=== PATIENT | male | born 1970 | race Caucasian/White ===

== ENCOUNTER 2024-04-26 15:29 | Emergency (ER) | payer OTHER ==
--- NOTE | 2024-04-26 15:48 | ED Physician Documentation ---
PD HPI CHEST PAIN - Stated complaint Stated Complaint: CP - Chief complaint Chief Complaint: Cardiac - History obtained from History obtained from: Patient - Additional information Additional information: 53-year-old gentleman with history of ongoing tobaccoism, type 2 diabetes and hypercholesterolemia presents with evaluation of chest pain. It started about 2 hours ago (1:40 PM) with light activity. He describes it as an intermittent pain just to the right of the sternum lasting only a second at a time. Somewhat random without obvious inciting factors but happening every 20 minutes or so. S o he is mostly pain-free. He denies shortness of breath, pedal edema, calf pain, recent travel, diaphoresis or nausea. PD PAST MEDICAL HISTORY - Past Medical History Endocrine/Autoimmune: Type 2 diabetes - Present Medications Home Medications: Ambulatory Orders Medication Instructions Recorded Confirmed Atorvastatin Calcium 40 mg PO DAILY 04/26/24 04/26/24 metFORMIN [Glucophage] 500 mg PO DAILY 04/26/24 04/26/24 - Allergies Allergies/Adverse Reactions: Allergies Allergy/AdvReac Type Severity Reaction Status Date / Time No Known Drug Allergies Allergy Verified 04/26/24 15:44 - Social History Does the pt smoke?: Yes Smoking Status: Current every day smoker Does the pt drink ETOH?: No Does the pt have substance abuse?: No - Immunizations Immunizations are current?: No - POLST Patient has POLST: No PD ED PE NORMAL - Vitals Vital signs reviewed: Yes - General General: Alert and oriented X 3, No acute distress - Neck Neck: Supple, no meningeal sign - Cardiac Cardiac: RRR, No murmur, Other (Chest pain is not reproducible with palpation of the anterior chest wall in fact if anything he says it alleviates it.) - Respiratory Respiratory: No respiratory distress, Clear bilaterally - Abdomen Abdomen: Normal bowel sounds, Soft, Non tender - Extremities Extremities: No edema, No calf tenderness / cord - Neuro Neuro: Alert and oriented X 3, Normal speech Results - Vitals Vitals: Vital Signs - 24 hr 04/26/24 15:38 Temperature 36.4 C L Heart Rate 101 H Respiratory 18 Rate Blood Pressure 154/94 H O2 Saturation 96 Oxygen O2 Source Room air - EKG (time done) 1538 EKG releavant findings:: EKG personally interpreted by author of this note. Relevant findings are: Rate: Rate (enter#) (98) Rhythm: NSR [place]: Normal Intervals: Normal [place] QRS: Normal Ischemia: Normal ST segments Computer interpretation: Agree with computer - Labs Labs: Laboratory Tests 04/26/24 04/26/24 15:40 15:40 WBC 8.2 RBC 5.25 Hgb 16.0 Hct 47.0 MCV 89.5 MCH 30.5 MCHC 34.0 RDW 12.3 Plt Count 212 MPV 10.2 Neut # (Auto) 5.1 Lymph # (Auto) 2.1 [place] # (Auto) 0.6 Eos # (Auto) 0.3 Baso # (Auto) 0.1 Absolute Nucleated RBC 0.00 Nucleated RBC % 0.0 Sodium 138 Potassium 3.5 Chloride 106 Carbon Dioxide 23 Anion Gap 9.0 BUN 15 Creatinine 1.1 Estimated GFR (MDRD) 70 L Glucose 124 H Calcium 9.2 Total Bilirubin 0.9 AST 20 ALT 27 Alkaline Phosphatase 53 Troponin I High Sens 3.8 Total Protein 6.3 L Albumin 4.4 Globulin 1.9 L Albumin/Globulin Ratio 2.3 H Lipase 33 - Rads (name of study) 1v CXR-NAD Relevant Findings:: Final report received, EMP independent interpretation of test PD Medical Decision Making - ED course ED course: 53-year-old gentleman with a few risk factors for coronary disease (smoking, hypercholesterolemia, type 2 diabetes) presents with very atypical chest pain that is fleeting and lasting only a second at a time and intermittent and nonexertional. EKG is nonischemic. Plan to check a troponin and a second after 2 hours. PE is considered but very unlikely given lack of leg symptoms, shortness of breath. There is no radiation to the back or constant severe pain to suggest dissection. Initial results notable for normal CBC. CMP only notable for mild hyperglycemia at 124. Initial high-sensitivity troponin normal/negative. Care to Dr. Olivares approximately 5 PM to follow-up on second troponin to be drawn approximately 5:40 PM. Departure - Departure Clinical Impression: Chest pain Condition: Good Record reviewed to determine appropriate education?: Yes Instructions: ED Chest Pain Atypical Unkn Cause Comments: Follow-up with your primary care physician, call tomorrow for next available appointment. They may want to perform stress testing on you. Return for new or worsening symptoms. Forms: PCP List
[2024-04-26 15:52] LABS: BASOPHILS # (AUTO) 0.1 10^3/uL (0.0-0.1); BASOPHILS % (AUTO) 0.9 %; EOSINOPHILS # (AUTO) 0.3 10^3/uL (0.0-0.7); EOSINOPHILS % (AUTO) 3.4 %; LYMPHOCYTES # (AUTO) 2.1 10^3/uL (1.5-3.5); LYMPHOCYTES % (AUTO) 25.3 %; MEAN CORPUSCULAR HEMOGLOBIN 30.5 pg (27.0-31.0); MEAN CORPUSCULAR VOLUME 89.5 fL (80.0-94.0); MEAN PLATELET VOLUME 10.2 fL (7.4-11.4); MONOCYTES # (AUTO) 0.6 10^3/uL (0.0-1.0); MONOCYTES % (AUTO) 7.6 %; NEUTROPHILS # (AUTO) 5.1 10^3/uL (1.5-6.6); NEUTROPHILS % (AUTO) 61.9 %; PLT - PLATELET COUNT 212 10^3/uL (130-450); RED BLOOD COUNT 5.25 10^6/uL (4.70-6.10); RED CELL DISTRIBUTION WIDTH 12.3 % (12.0-15.0); WHITE BLOOD COUNT 8.2 x10^3/uL (4.8-10.8)
[2024-04-26] MEDS: ASPIRIN CHEW 81 MG TABLET PO STA (15:55)
--- NOTE | 2024-04-26 16:02 | XRAY Report ---
PROCEDURE: Chest 1V INDICATIONS: Chest Pain TECHNIQUE: One view of the chest was acquired. COMPARISON: None. FINDINGS: Surgical changes and devices: None. Lungs and pleura: No pleural effusions or pneumothorax. Lungs are clear. Mediastinum: Mediastinal contours appear normal. Heart size is normal. Bones and chest wall: No suspicious bony lesions. Overlying soft tissues appear unremarkable. IMPRESSION: No acute cardiopulmonary process. Reviewed by: Fernando Cross MD on 04/26/2024 3:00 PM [facility] Approved by: Fernando Cross MD on 04/26/2024 3:00 PM [facility] Station ID: [id number]
[2024-04-26 16:06] LABS: ALBUMIN 4.4 g/dL (3.2-5.5); ALBUMIN/GLOBULIN RATIO 2.3 (1.0-2.2); BILIRUBIN,TOTAL 0.9 mg/dL (0.2-1.0); CALCIUM 9.2 mg/dL (8.5-10.3); CREATININE 1.1 mg/dL (0.6-1.3); POTASSIUM 3.5 mmol/L (3.5-4.5); TOTAL PROTEIN 6.3 g/dL (6.4-8.9)
[2024-04-26 16:07] LABS: TROPONIN I HIGH SENSITIVITY 3.8 ng/L (2.3-19.7)
[2024-04-26 17:48] VITALS: O2SAT 97
--- NOTE | 2024-04-26 18:26 | ED Physician Documentation ---
ED Addendum - Addendum Addendum: 04/26/24 18:24 Patient was signed out to me by Dr. Gómez awaiting repeat troponin. Second high sensitive troponin is also negative. Will have him follow-up with his doctor for further care. No evidence of ACS at this time. Patient counseled regarding signs and symptoms for which I believe and urgent re-evaluation would be necessary. Patient with good understanding of and agreement to plan and is comfortable going home at this time This document was made in part using voice recognition software. While efforts are made to proofread this document, sound alike and grammatical errors may occur. Departure - Departure Disposition: Home, Self Care Clinical Impression: Chest pain Qualifiers: Chest pain type: unspecified Qualified Code(s): R07.9 - Chest pain, unspecified Condition: Good Instructions: ED Chest Pain Atypical Unkn Cause Follow-Up: your,doctor in 1 week [Other] Comments: Follow-up with your primary care physician, call tomorrow for next available appointment. They may want to perform stress testing on you. Return for new or worsening symptoms. Your testing does not show any acute abnormalities today. Forms: PCP List
[2024-04-26 18:35] VITALS: BP 150/95
== END 2024-04-26 18:33 | disposition home or self-care (01) ==
LOC: ED 15:29
DX: R07.89 Other chest pain (principal); E78.00 Pure hypercholesterolemia, unspecified; E11.9 Type 2 diabetes mellitus without complications; F17.200 Nicotine dependence, unspecified, uncomplicated; Z79.84 Long term (current) use of oral hypoglycemic drugs; Z79.899 Other long term (current) drug therapy
CPT/HCPCS: 36415; 71045; 80053; 83690; 84484; 85025; 93005; 99284; A9270